=== PATIENT | male | born 1950 | race Hispanic/Latino ===

== ENCOUNTER 2017-04-19 23:36 | Inpatient (IN) | payer MEDICARE ==
--- NOTE | 2017-04-20 00:04 | C.PDOC ---
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 Patient denies chest pain, SOB, abdominal pain, ear pain, or any other complaints. History given by patient's . Time Seen by Provider: 04/20/17 00:02 Chief Complaint (Nursing): Fever History Per: Family () History/Exam Limitations: no limitations Onset/Duration Of Symptoms: Days (2) Current Symptoms Are (Timing): Still Present Sick Contacts (Context): None Ear Symptoms: Bilateral: None Severity: Mild Recent travel outside of the [place]: No Additional History Per: Family () Past Medical History Reviewed: Historical Data, Nursing Documentation, Vital Signs Vital Signs: Last Vital Signs Temp 102.3 F H 04/20/17 00:00 Pulse 88 04/19/17 23:48 Resp 20 04/19/17 23:48 BP 141/70 04/19/17 23:48 Pulse Ox 92 L 04/20/17 01:14 - Medical History Other PMH: Oconee's disease Family History: States: Unknown Family Hx - Social History Hx Alcohol Use: No Hx Substance Use: No Review Of Systems Review Of Systems: ROS cannot be obtained secondary to pt's inabilty to answer questions. Physical Exam - Physical Exam Appears: Non-toxic, No Acute Distress Skin: Warm, Dry Head: Atraumatic, Normacephalic Eye(s): bilateral: Normal Inspection Ear(s): Bilateral: Normal Oral Mucosa: Dry Throat: Normal, No Erythema, No Exudate Neck: Supple Cardiovascular: Rhythm Regular, No Murmur Respiratory: No Rales, Rhonchi (Occasional ), No Wheezing Gastrointestinal/Abdominal: Soft, No Tenderness Back: Normal Inspection, No CVA Tenderness Extremity: Capillary Refill (<2secs), Other (Rigidity of the extremities) Neurological/Psych: Other (Nonverbal) ED Course And Treatment - Laboratory Results Result Diagrams: 04/20/17 00:07 04/20/17 00:36 ECG: Interpreted By Me, Viewed By Me ECG Rhythm: Sinus Rhythm ECG Interpretation: Normal, No Acute Changes Interpretation Of ECG: NSR, normal tracings. Rate From EC O2 Sat by Pulse Oximetry: 92 (O2 mask) Pulse Ox Interpretation: Abnormal Medical Decision Making Medical Decision Making: Impression: * Fever and vomiting for 2 days. Hx of Oconee's disease. Plans: * Blood labs * CT Chest w/o * EKG * IV fluids * Tylenol * O2, simple mask * UA * director of scientific research * CXR Disposition Discussed With : Colten Prasad Doctor Will See Patient In The: Hospital Counseled Patient/Family Regarding: Diagnosis - Disposition Referrals: Blanca Hodgson MD [Primary Care Provider] - Disposition: HOSPITALIZED Disposition Time: 01:14 Condition: STABLE Forms: Clari (Albanian) - POA Present On Arrival: None - Clinical Impression Clinical Impression: Fever, Pneumonia, Oconee's disease - Scribe Statement The provider has reviewed the documentation as recorded by the Scribe Jose Manuel madrid All medical record entries made by the Scribe were at my direction and personally dictated by me. I have reviewed the chart and agree that the record accurately reflects my personal performance of the history, physical exam, medical decision making, and the department course for this patient. I have also personally directed, reviewed, and agree with the discharge instructions and disposition.
[2017-04-20 00:06] LABS: VENOUS BLOOD GAS BASE EXCESS -1.3 mmol/L (0.0-2.0); VENOUS BLOOD GAS PCO2 35 mmHg (40-60); VENOUS BLOOD PH 7.42 (7.32-7.43)
[2017-04-20 00:10] LABS: BASO # 0.1 K/uL (0.0-0.2); BASO % 0.4 % (0.0-2.0); EOS % 0.2 % (0.0-4.0); HEMATOCRIT 44.6 % (35.0-51.0); LYMPH # 0.9 K/uL (1.0-4.3); LYMPH % 5.9 % (20.0-40.0); MEAN CORPUSCULAR HEMOGLOBIN 31.9 pg (27.0-31.0); MEAN CORPUSCULAR HGB CONC 33.5 g/dL (33.0-37.0); MEAN PLATELET VOLUME 8.5 fL (7.2-11.7); MONO # 0.5 K/uL (0.0-0.8); MONO % 3.4 % (0.0-10.0); PLATELET COUNT 322 K/uL (130-400); RED CELL DISTRIBUTION WIDTH 14.1 % (11.5-14.5); WHITE BLOOD COUNT 15.2 K/uL (4.8-10.8)
[2017-04-20 00:14] LABS: INR 1.3
[2017-04-20 00:17] LABS: ALB/GLOB RATIO 1.1 (1.0-2.1); ALKALINE PHOSPHATASE 77 U/L (38-126); ALT/SGPT 42 U/L (21-72); AST/SGOT 45 U/L (17-59); BILIRUBIN,TOTAL 1.5 mg/dL (0.2-1.3); BLOOD UREA NITROGEN 16 mg/dL (9-20); CARBON DIOXIDE 20 mmol/L (22-30); CHLORIDE 102 mmol/L (98-107); GFR AFRICAN-AMERICAN > 60; GLUCOSE,RANDOM 121 mg/dL (75-110); PHOSPHOROUS 3.2 mg/dL (2.5-4.5); SODIUM 134 mmol/L (132-148); TOTAL PROTEIN 7.4 g/dL (6.3-8.3)
[2017-04-20] MEDS ORDERED: Sodium Chloride 0.9% 1,000 ML IV ONE (00:17)
[2017-04-20 00:39] LABS: POTASSIUM 5.3 mmol/L (3.6-5.2)
[2017-04-20] MEDS ORDERED: Sodium Chloride 0.9% 1,000 ML ONE (00:44)
[2017-04-20 00:52] LABS: ABG ALLEN TEST POS; ARTERIAL BLOOD GAS MODE ROOM AIR; ARTERIAL BLOOD HGB O2 SAT 93.7 % (95.0-98.0); CARBOXYHEMOGLOBIN 2.6 % (0.5-1.5); DRAW SITE RR; HHB 2.3 % (0.0-5.0); METHEMOGLOBIN 1.4 % (0.0-3.0)
--- NOTE | 2017-04-20 00:52 | CT ---
EXAM: CT Chest Without Intravenous Contrast EXAM DATE/TIME: 04/19/2017 11:56 PM CLINICAL HISTORY: 66 years old, male; Pain; Chest pain; Additional info: Fever/ cough/ carla's disease TECHNIQUE: Axial computed tomography images of the chest without intravenous contrast. All CT scans at this facility use one or more dose reduction techniques, viz.: automated exposure control; ma/kV adjustment per patient size (including targeted exams where dose is matched to indication; i.e. head); or iterative reconstruction technique. Coronal and sagittal reformatted images were created and reviewed. COMPARISON: There are no prior studies for comparison. FINDINGS: Artifacts: Motion artifact degrades image quality. Streak artifact degrades image quality. Lungs and pleural spaces: Trachea and main bronchi are patent. There are groundglass opacities in the left upper lobe. There are alveolar nodular opacities in the right upper lobe. There are alveolar and nodular opacities in the right lower lobe. There is mild diffuse increase in interstitial markings bilaterally. There is a small right effusion. Heart and vasculature: Heart size is normal.There is trace fluid in pericardial recesses. There are coronary artery calcifications.Aorta and main pulmonary artery are normal in caliber.There are vascular calcifications. Mediastinum: There is a hiatal hernia. Esophagus is unremarkable. There are no pathologically enlarged mediastinal nodes.Merissa are not optimally evaluated without contrast material. Thyroid: Thyroid is heterogeneous. Bones/joints: There is a convex right thoracolumbar curve.There are degenerative changes in the osseus structures. Soft tissues: unremarkable Upper abdomen: There are no acute abnormalities in the visualized portion of the abdomen. There is a cystic lesion with a calcified rim in the right retroperitoneum. There is a calcification in the spleen. IMPRESSION: Bilateral interstitial and airspace disease pneumonia cannot be excluded; small right pleural effusion
[2017-04-20] MEDS ORDERED: cefTRIAXone IV 1 gm in Dextros 50 ML IVPB ONE ×2 (00:59→01:08)
[2017-04-20] MEDS ORDERED: Azithromycin 500mg/250ML NS 500 MG/250 ML BAG IV STA (00:59)
[2017-04-20 01:03] LABS: NEUTROPHIL 88 % (50-75); TOTAL CELLS COUNTED 100
[2017-04-20 01:12] LABS: RBC URINE 1 /hpf (0-3); URINE BILIRUBIN NEGATIVE (NEGATIVE); URINE BLOOD NEGATIVE (NEGATIVE); URINE COLOR Yellow (YELLOW); URINE GLUCOSE (UA) NORMAL (Normal); URINE KETONE 1+ mg/dL (NEGATIVE); URINE LEUKOCYTE ESTERASE NEG Leu/uL (Negative); URINE PROTEIN NEGATIVE (NEGATIVE); URINE UROBILINOGEN NORMAL mg/dL (0.2-1.0); WBC URINE 1 /hpf (0-5)
[2017-04-20] MEDS ORDERED: Azithromycin 500mg/250ML NS 500 MG/250 ML BAG IVPB ONE (01:37)
--- NOTE | 2017-04-20 03:32 | CP.PCM.PN ---
Subjective - Date & Time of Evaluation Date of Evaluation: 04/20/17 Time of Evaluation: 03:23 - Subjective Subjective: Assessment * B/l small infiltrates, with fever, cough,suspicious for developing aspiration pna * Advanced Yunior's patient completely dependent, minimal speech, poor cognition, stiffness in the body * Very high risk of aspiration pna due to above * Right side abd calcification partially imaged Plan * Abx zosyn, doxycycline * NPO except meds with apple sauce only * IVF * Protonix iv, zofran 4mg iv q6 x4 doses schedule to prevent acid reflux with cough * Heparin subq for dvt prophylaxis * D/w about patient's condition, poor prognosis and code status, currently can't make decision hence will be full code * Speech and swallow eval * See orders for detail. Objective - Vital Signs/Intake and Output Vital Signs (last 24 hours): Temp Pulse Resp BP Pulse Ox 98.4 F 109 H 18 134/84 94 L 04/20/17 01:58 04/20/17 01:51 04/20/17 01:51 04/20/17 01:51 04/20/17 01:51 Intake and Output: 04/19/17 04/20/17 18:59 06:59 Output Total 120 Balance -120 - Medications Medications: Current Medications Acetaminophen (Tylenol 325mg Tab) 650 mg PO Q6 PRN PRN Reason: fever >101 Heparin Sodium (Porcine) (Heparin) 5,000 units SC Q8 [facility] Home Med (Baclofen) 10 mg PO DAILY [facility] Home Med (Donepezil) 10 mg PO DAILY [facility] Home Med (Seroquel) 25 mg PO DAILY [facility] Sodium Chloride (Sodium Chloride 0.9%) 1,000 mls @ 100 mls/hr IV .Q10H ONE Stop: 04/20/17 10:16 Last Admin: 04/20/17 00:45 Dose: 100 mls/hr Doxycycline Hyclate 100 mg/ (Sodium Chloride) 100 mls @ 100 mls/hr IVPB Q12H [facility] Piperacillin Sod/Tazobactam (Sod 3.375 gm/ Sodium Chloride) 100 mls @ 200 mls/ hr IVPB Q6H [facility] Ondansetron HCl (Zofran Inj) 4 mg IVP Q6H TOD Stop: 04/20/17 21:01 Pantoprazole Sodium (Protonix Inj) 40 mg IVP DAILY TOD - Labs Labs: 04/20/17 00:07 04/20/17 00:36 PT 14.3 SECONDS (9.7-12.2) H 04/20/17 00:20 INR 1.3 04/20/17 00:20 APTT 27 SECONDS (21-34) 04/20/17 00:20
[2017-04-20] MEDS: Piperacillin/Tazobact 3.375 GM in Sodium Chloride 100 ML IVPB SCH ×4 (03:45→20:54)
--- NOTE | 2017-04-20 04:02 | CP.PCM.HP ---
<Jimmy Brooks - Last Filed: 04/20/17 04:19> History of Present Illness - History of Present Illness History of Present Illness: PGY1 Medicine Note for Dr. Prasad Patient is a 66 year old male with PMH of Litchfield's disease presenting with CC of vomiting and fever. Patient is unable to give history due to advanced Litchfield's disease, is at bedside . The , who is also the primary caregiver, reports that the patient has vomited 3 times in the last two days, once on Monday and twice on Monday. The emesis is described as undigested food, with no blood or coffee ground appearance. She states that the patient also began to feel warm today and started breaking out in sweating spells. She would give him Tylenol which would help take away the subjective fever, she did not take his temperature, but it would quickly return. The states that her does speak at times but it is very periodic and is usually just repeating whatever is stated on television. He was diagnosed with Litchfield's in 2008. The patient is contracted at baseline. The last time he walked was in [id number]. He his diet consistency is shredded food. He has been able to take his medications with water without any problems. He has never has pneumonia in the past. Patient wears a diaper. He does not use the bathroom, he urinates and defecates inside the diaper. The does not report any other symptoms at this time. PMD: Dr. Hodgson PMH: Litchfield's Disease (dx in 2008) PSH: Right sided abdominal surgery in 1989 ( does not know what for) Family: Brother and Sister both of Litchfield's Disease. Does not know about pt's parents Social: Denies tobacco, alcohol or illicit drug use Allergies: NKDA Present on Admission - Present on Admission Any Indicators Present on Admission: No Review of Systems - Review of Systems Systems not reviewed;Unavailable: Other (Advanced Carla's Disease) - Constitutional Constitutional: Fever - Gastrointestinal Gastrointestinal: Vomiting (undigested food) - Endocrine Endocrine: Excessive Sweating Past Patient History - Past Social History Smoking Status: Unknown If Ever Smoked - NEUROLOGICAL Other/Comment: carla's disease - PSYCHIATRIC Hx Substance Use: No Meds Allergies/Adverse Reactions: Allergies Allergy/AdvReac Type Severity Reaction Status Date / Time No Known Allergies Allergy Verified 04/19/17 23:50 Physical Exam - Constitutional Appears: Chronically Ill (contracted) - Head Exam Head Exam: ATRAUMATIC, NORMOCEPHALIC - ENT Exam ENT Exam: Mucous Membranes Moist - Neck Exam Neck exam: Negative for: Lymphadenopathy, Thyromegaly - Respiratory Exam Respiratory Exam: Rhonchi (scattered), NORMAL BREATHING PATTERN (pt asleep, snoring throughout majority of exam). absent: Rales, Wheezes - Cardiovascular Exam Cardiovascular Exam: REGULAR RHYTHM, +S1, +S2 - GI/Abdominal Exam GI & Abdominal Exam: Normal Bowel Sounds, Soft. absent: Distended, Guarding, Rigid, Tenderness - Neurological Exam Neurological exam: Altered Additional comments: Left arm contracted to the chest. Right are flexed but able to straighten a little bit, but not completely. Legs are slightly bent, unable to straighten. Patient was able to move left during cardiac exam to move stethoscope away. This was only movement witness throughout exam. - Psychiatric Exam Additional comments: pt was non-verbal during examination. - Skin Skin Exam: Intact, Normal Color, Warm Additional comments: Patient was diaphoretic, skin moist. Results - Vital Signs Recent Vital Signs: Last Vital Signs Temp 98.4 F 04/20/17 01:58 Pulse 109 H 04/20/17 01:51 Resp 18 04/20/17 01:51 BP 134/84 04/20/17 01:51 Pulse Ox 94 L 04/20/17 01:51 - Labs Result Diagrams: 04/20/17 00:07 04/20/17 00:36 Labs: Laboratory Results - last 24 hr 04/19/17 04/20/17 04/20/17 00:01 00:07 00:20 WBC 15.2 H RBC 4.70 Hgb 15.0 Hct 44.6 MCV 95.0 H MCH 31.9 H MCHC 33.5 RDW 14.1 Plt Count 322 MPV 8.5 Neut % (Auto) 90.1 H Lymph % (Auto) 5.9 L [place] % (Auto) 3.4 Eos % (Auto) 0.2 Baso % (Auto) 0.4 Neut # 13.7 H Lymph # 0.9 L [place] # 0.5 Eos # 0.0 Baso # 0.1 Neutrophils % (Manual) 88 H Band Neutrophils % 1 Lymphocytes % (Manual) 6 L Monocytes % (Manual) 5 Platelet Estimate Normal PT 14.3 H INR 1.3 APTT 27 Puncture Site pCO2 pO2 49 HCO3 ABG pH ABG Total CO2 ABG O2 Saturation ABG Base Excess ABG Hemoglobin ABG Carboxyhemoglobin POC ABG HHb (Measured) ABG Methemoglobin Ruddy Test VBG pH 7.42 VBG pCO2 35 L VBG HCO3 23.6 VBG Total CO2 23.8 VBG O2 Sat (Calc) 96.1 H VBG Base Excess -1.3 L VBG Potassium 3.9 A-a O2 Difference Respiratory Index Hgb O2 Saturation Sodium 139.0 Chloride 107.0 Glucose 134 H Lactate 1.4 Vent Mode FiO2 Potassium Carbon Dioxide Anion Gap BUN Creatinine Est GFR ( Amer) Est GFR (Non-Af Amer) Random Glucose Calcium Phosphorus Magnesium Total Bilirubin AST ALT Alkaline Phosphatase Total Protein Albumin Globulin Albumin/Globulin Ratio Venous Blood Potassium 3.9 Urine Color Urine Clarity Urine pH Ur Specific [place] Urine Protein Urine Glucose (UA) Urine Ketones Urine Blood Urine Nitrate Urine Bilirubin Urine Urobilinogen Ur Leukocyte Esterase Urine WBC (Auto) Urine RBC (Auto) Ur Squamous Epith Cells 04/20/17 04/20/17 04/20/17 00:36 00:45 01:06 WBC RBC Hgb Hct MCV MCH MCHC RDW Plt Count MPV Neut % (Auto) Lymph % (Auto) [place] % (Auto) Eos % (Auto) Baso % (Auto) Neut # Lymph # [place] # Eos # Baso # Neutrophils % (Manual) Band Neutrophils % Lymphocytes % (Manual) Monocytes % (Manual) Platelet Estimate PT INR APTT Puncture Site Rr pCO2 36 pO2 79 L HCO3 24.8 ABG pH 7.43 ABG Total CO2 25.0 ABG O2 Saturation 97.6 ABG Base Excess 0 ABG Hemoglobin 14.8 ABG Carboxyhemoglobin 2.6 H POC ABG HHb (Measured) 2.3 ABG Methemoglobin 1.4 Ruddy Test Pos VBG pH VBG pCO2 VBG HCO3 VBG Total CO2 VBG O2 Sat (Calc) VBG Base Excess VBG Potassium A-a O2 Difference 26.0 Respiratory Index 0.3 Hgb O2 Saturation 93.7 L Sodium 134 Chloride 102 Glucose Lactate Vent Mode Room air FiO2 21.0 Potassium 5.3 H Carbon Dioxide 20 L Anion Gap 17 BUN 16 Creatinine 0.7 L Est GFR ( Amer) > 60 Est GFR (Non-Af Amer) > 60 Random Glucose 121 H Calcium 9.0 Phosphorus 3.2 Magnesium 2.0 Total Bilirubin 1.5 H AST 45 ALT 42 Alkaline Phosphatase 77 Total Protein 7.4 Albumin 3.9 Globulin 3.5 Albumin/Globulin Ratio 1.1 Venous Blood Potassium Urine Color Yellow Urine Clarity Clear Urine pH 5.0 Ur Specific [place] 1.033 H Urine Protein Negative Urine Glucose (UA) Normal Urine Ketones 1+ H Urine Blood Negative Urine Nitrate Negative Urine Bilirubin Negative Urine Urobilinogen Normal Ur Leukocyte Esterase Neg Urine WBC (Auto) 1 Urine RBC (Auto) 1 Ur Squamous Epith Cells < 1 Assessment & Plan - Assessment and Plan (Free Text) Assessment: Pneumonia - Chest CT 04/20/17 - Bilateral interstitial and airspace disease pneumonia cannot be excluded; small right pleural effusion. There is a non-acute, cystic appearing lesion with a calcified rim partially imaged in the the upper portion of the abdomen. Further imagining may be needed to further evaluate.St - Pt high risk for aspiration pneumonia due to advanced Litchfield's disease. - Pt given one dose of Azithromycin 500mg and Ceftriazone 50mg in emergency room - Zosyn 3.375g IVPB Q6H - Doxycycline 100mg IVPB Q12H - Protonix 40mg IV daily - Zosyn 4 mg IVP Q6H for 4 doses - Acetaminophen Q6 PRN for fever >101 - NS @ 100ml/hr - f/u blood cultures, urine cultures Litchfield's Disease - Patient high risk of aspiration, swallow study and evaluation - Restarted patient's home medications - Baclofen 10mg PO daily - Donepezil 10mg PO daily - Seroquel 25mg PO HS Prophylactic Care - Heparin 5,000u SC Q8H - Protonix 40mg IVP daily - NPO except apple sauce with medications (all medications are to be crushed and placed in apple sauce and fed to patient one spoonful at a time) - Aspiration precautions Case discussed with Dr. Shanice Brooks PGY1 <Colten Prasad - Last Filed: 04/23/17 07:25> Results - Vital Signs Recent Vital Signs: Last Vital Signs Temp 97.5 F L 04/23/17 05:00 Pulse 93 H 09/24/17 00:00 Resp 18 04/23/17 00:00 BP 155/83 H 04/23/17 00:00 Pulse Ox 99 04/23/17 00:00 - Labs Result Diagrams: 04/22/17 06:50 04/22/17 06:50 Attending/Attestation - Attestation I have personally seen and examined this patient.: Yes I have fully participated in the care of the patient.: Yes I have reviewed all pertinent clinical information: Yes Notes (Text): 04/23/17 07:25 See note on the same day.
[2017-04-20 07:14] LABS: BASO # 0.1 K/uL (0.0-0.2); BASO % 0.5 % (0.0-2.0); EOS % 0.1 % (0.0-4.0); HEMATOCRIT 39.4 % (35.0-51.0); LYMPH % 6.2 % (20.0-40.0); MEAN CELL VOLUME 95.3 fL (80.0-94.0); MEAN CORPUSCULAR HEMOGLOBIN 32.3 pg (27.0-31.0); MEAN CORPUSCULAR HGB CONC 33.9 g/dL (33.0-37.0); MEAN PLATELET VOLUME 8.5 fL (7.2-11.7); MONO # 0.9 K/uL (0.0-0.8); MONO % 5.7 % (0.0-10.0); PLATELET COUNT 267 K/uL (130-400); WHITE BLOOD COUNT 15.7 K/uL (4.8-10.8)
[2017-04-20 07:45] LABS: CHLORIDE 107 mmol/L (98-107); POTASSIUM 3.9 mmol/L (3.6-5.2); SODIUM 142 mmol/L (132-148)
[2017-04-20 07:47] LABS: BILIRUBIN,TOTAL 0.9 mg/dL (0.2-1.3); GFR AFRICAN-AMERICAN > 60
[2017-04-20 07:48] LABS: ALB/GLOB RATIO 1.1 (1.0-2.1); ALKALINE PHOSPHATASE 80 U/L (38-126); ALT/SGPT 41 U/L (21-72); AST/SGOT 19 U/L (17-59); BLOOD UREA NITROGEN 14 mg/dL (9-20); CARBON DIOXIDE 21 mmol/L (22-30); GLUCOSE,RANDOM 103 mg/dL (75-110); TOTAL PROTEIN 6.5 g/dL (6.3-8.3)
[2017-04-20 07:49] LABS: CALCIUM 8.1 mg/dl (8.6-10.4)
[2017-04-20] MEDS: Budesonide 0.5 mg/2 ml Inhal Susp UD INH SCH ×2 (08:06→19:14)
[2017-04-20] MEDS: Albuterol 0.083% Inhal Sol (2.5 mg/3 mL) UD INH SCH ×3 (08:06→19:14)
--- NOTE | 2017-04-20 08:11 | RAD ---
HISTORY: Sepsis Patient COMPARISON: No prior. FINDINGS: LUNGS: No active pulmonary disease. PLEURA: No significant pleural effusion identified, no pneumothorax apparent. CARDIOVASCULAR: Probable top-normal - given apical projection OSSEOUS STRUCTURES: Dextroscoliosis and thoracic spondylosis VISUALIZED UPPER ABDOMEN: Normal. OTHER FINDINGS: None. IMPRESSION: No active disease.
[2017-04-20 08:21] LABS: THYROID STIMULATING HORMONE 1.48 mIU/L (0.46-4.68)
[2017-04-20 08:31] LABS: NEUTROPHIL 89 % (50-75); TOTAL CELLS COUNTED 100
--- NOTE | 2017-04-20 08:48 | CP.PCM.PN ---
<Eula Servin - Last Filed: 04/20/17 15:20> Subjective - Date & Time of Evaluation Date of Evaluation: 04/20/17 Time of Evaluation: 07:40 - Subjective Subjective: Medicine Progress Note: Patient was seen and examined at bedside in the AM. ROS unattainable due to progression of Bedford's Disease, patient is non-verbal. Objective - Vital Signs/Intake and Output Vital Signs (last 24 hours): Temp Pulse Resp BP Pulse Ox 97.4 F L 80 18 155/99 H 95 04/20/17 07:15 04/20/17 07:15 04/20/17 07:15 04/20/17 07:15 04/20/17 07:15 Intake and Output: 04/20/17 04/20/17 06:59 18:59 Intake Total 250 Output Total 320 Balance -70 - Medications Medications: Current Medications Acetaminophen (Tylenol 325mg Tab) 650 mg PO Q6 PRN PRN Reason: fever >101 Albuterol Sulfate (Albuterol 0.083% Inhal Dunia (2.5 Mg/3 Ml) Ud) 2.5 mg INH RQ6 [facility] Last Admin: 04/20/17 08:06 Dose: 2.5 mg Aspirin (Aspirin Chewable) 81 mg PO DAILY [facility] Baclofen (Lioresal) 10 mg PO DAILY [facility] Budesonide (Pulmicort Respules) 0.5 mg INH RQ12 [facility] Last Admin: 04/20/17 08:06 Dose: Not Given Donepezil HCl (Aricept) 10 mg PO DAILY [facility] Heparin Sodium (Porcine) (Heparin) 5,000 units SC Q8 [facility] Last Admin: 04/20/17 06:59 Dose: 5,000 units Sodium Chloride (Sodium Chloride 0.9%) 1,000 mls @ 100 mls/hr IV .Q10H ONE Stop: 04/20/17 10:16 Last Admin: 04/20/17 00:45 Dose: 100 mls/hr Doxycycline Hyclate 100 mg/ (Sodium Chloride) 100 mls @ 100 mls/hr IVPB Q12H [facility] Last Admin: 04/20/17 05:04 Dose: 100 mls/hr Piperacillin Sod/Tazobactam (Sod 3.375 gm/ Sodium Chloride) 100 mls @ 200 mls/ hr IVPB Q6H [facility] Last Admin: 04/20/17 03:45 Dose: 200 mls/hr Ondansetron HCl (Zofran Inj) 4 mg IVP Q6H [facility] Stop: 04/20/17 21:01 Last Admin: 04/20/17 03:46 Dose: 4 mg Pantoprazole Sodium (Protonix Inj) 40 mg IVP DAILY [facility] Pneumococcal Polyvalent Vaccine (Pneumovax 23 Vaccine) 0.5 ml IM .ONCE ONE Stop: 04/22/17 10:01 Quetiapine Fumarate (Seroquel) 25 mg PO DAILY [facility] - Labs Labs: 04/20/17 07:09 04/20/17 07:09 PT 14.3 SECONDS (9.7-12.2) H 04/20/17 00:20 INR 1.3 04/20/17 00:20 APTT 27 SECONDS (21-34) 04/20/17 00:20 - Constitutional Appears: Chronically Ill - Head Exam Head Exam: ATRAUMATIC, NORMAL INSPECTION, NORMOCEPHALIC - Eye Exam Eye Exam: Normal appearance - ENT Exam ENT Exam: Mucous Membranes Moist - Respiratory Exam Respiratory Exam: NORMAL BREATHING PATTERN - Cardiovascular Exam Cardiovascular Exam: REGULAR RHYTHM, +S1, +S2 - GI/Abdominal Exam GI & Abdominal Exam: Soft, Normal Bowel Sounds - Extremities Exam Extremities Exam: absent: Joint Swelling, Pedal Edema Additional comments: Contracted bilateral upper and lower extremities - Neurological Exam Neurological Exam: Alert, Awake. absent: Oriented x3 Additional comments: Contracted bilateral upper and lower extremities. Was able to extend upper extremities a little bit but patient seemed not to appreciate. - Psychiatric Exam Additional comments: Non-verbal - Skin Skin Exam: Normal Color, Warm Assessment and Plan - Assessment and Plan (Free Text) Assessment: 1.) Aspiration Pneumonia secondary to advanced Bedford's Disease - Chest CT 04/20/17 - Bilateral interstitial and airspace disease pneumonia cannot be excluded; small right pleural effusion. There is a non-acute, cystic appearing lesion with a calcified rim partially imaged in the the upper portion of the abdomen. Further imagining may be needed to further evaluate.St * Zosyn 3.375g IVPB Q6H * Doxycycline 100mg IVPB Q12H discontinued Acetaminophen Q6 PRN for fever >101 * NS @ 100ml/hr - f/u blood cultures, urine cultures 2.) Yunior's Disease - Patient high risk of aspiration, swallow study and evaluation - NPO - Possible placement of NG tube - Will speak with to discuss plan - Restarted patient's home medications * Baclofen 10mg PO daily * Donepezil 10mg PO daily * Seroquel 25mg PO HS - Neurology Consult: Dr. Golden --> help appreciated - f/u MRI of brain 3.) Prophylactic Care * Heparin 5,000u SC Q8H * Protonix 40mg IVP daily - NPO except apple sauce with medications (all medications are to be crushed and placed in apple sauce and fed to patient one spoonful at a time) - Aspiration precautions Case Discussed with Dr. Lisa Servin PGY-1 <Heber Gonzalez H - Last Filed: 04/20/17 16:28> Objective - Vital Signs/Intake and Output Vital Signs (last 24 hours): Temp Pulse Resp BP Pulse Ox 99.4 F 73 20 157/96 H 95 04/20/17 15:45 04/20/17 15:45 04/20/17 15:45 04/20/17 15:45 04/20/17 15:45 Intake and Output: 04/20/17 04/20/17 06:59 18:59 Intake Total 250 Output Total 320 Balance -70 - Medications Medications: Current Medications Acetaminophen (Tylenol 325mg Tab) 650 mg PO Q6 PRN PRN Reason: fever >101 Albuterol Sulfate (Albuterol 0.083% Inhal Dunia (2.5 Mg/3 Ml) Ud) 2.5 mg INH RQ6 [facility] Last Admin: 04/20/17 13:18 Dose: 2.5 mg Aspirin (Aspirin Chewable) 81 mg PO DAILY [facility] Last Admin: 04/20/17 13:47 Dose: 81 mg Baclofen (Lioresal) 10 mg PO DAILY [facility] Last Admin: 04/20/17 11:11 Dose: 10 mg Budesonide (Pulmicort Respules) 0.5 mg INH RQ12 [facility] Last Admin: 04/20/17 08:06 Dose: Not Given Donepezil HCl (Aricept) 10 mg PO DAILY [facility] Last Admin: 04/20/17 13:46 Dose: 10 mg Heparin Sodium (Porcine) (Heparin) 5,000 units SC Q8 [facility] Last Admin: 04/20/17 14:33 Dose: 5,000 units Piperacillin Sod/Tazobactam (Sod 3.375 gm/ Sodium Chloride) 100 mls @ 200 mls/ hr IVPB Q6H [facility] Last Admin: 04/20/17 14:07 Dose: 200 mls/hr Ondansetron HCl (Zofran Inj) 4 mg IVP Q6H [facility] Stop: 04/20/17 21:01 Last Admin: 04/20/17 14:42 Dose: 4 mg Pantoprazole Sodium (Protonix Inj) 40 mg IVP DAILY [facility] Last Admin: 04/20/17 09:51 Dose: 40 mg Pneumococcal Polyvalent Vaccine (Pneumovax 23 Vaccine) 0.5 ml IM .ONCE ONE Stop: 04/22/17 10:01 Quetiapine Fumarate (Seroquel) 25 mg PO DAILY [facility] Last Admin: 04/20/17 13:46 Dose: 25 mg - Labs Labs: 04/20/17 07:09 04/20/17 07:09 PT 14.3 SECONDS (9.7-12.2) H 04/20/17 00:20 INR 1.3 04/20/17 00:20 APTT 27 SECONDS (21-34) 04/20/17 00:20 Attending/Attestation - Attestation I have personally seen and examined this patient.: Yes I have fully participated in the care of the patient.: Yes I have reviewed all pertinent clinical information, including history, physical exam and plan: Yes Notes (Text): Medical attending: Patient was seen and examined by me, agrees the above note by medical device sales representative. When we came and saw the patient, he was not following any commands, he would only occasionally open his eyes. He did move his left and right upper arms however he has very contracted arms. They are very rigid on exam as well. The patient on told was diagnosed with Bedford's disease for quite some time now. There is also a family history of the patient's brother and sister supposedly passing away due to complications of the disease as well The overnight medical team was concerned about CAT scan findings suggestive of aspiration pneumonia. I'm being told that at home the family member taking care of the patient tries to feed him by mouth. From what I saw today I per concerned about aspiration pneumonia. I also spoke with the swallow eval as well and there to come by to reevaluate again. However thiseing said, we are very likely were to put an NG tube tomorrow if there is no change in the mental status/swallowing status and then recommended to the family that we need to get a PEG tube. The patient is on IV antibiotics at this time were to continue that We'll also get a neurological evaluation of the patient as well since there is a possibility that perhaps this is a presentation of severe Parkinson's disease instead of Bedford's and that the patient would be able to benefit from medication such as carbidopa/levodopa or pramipexole if this is Parkinson's disease Thank you very much, Heber Gonzalez
[2017-04-21] MEDS: Piperacillin/Tazobact 3.375 GM in Sodium Chloride 100 ML IVPB SCH ×4 (03:08→20:53)
[2017-04-21] MEDS: Albuterol 0.083% Inhal Sol (2.5 mg/3 mL) UD INH SCH ×4 (06:25→19:26)
--- NOTE | 2017-04-21 06:54 | CP.PCM.CON ---
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 NO FURTHER WORK UP IS NEEDED NEWLY APPROVED DRUG CAN BE TRIED AN OP Past Patient History - Past Medical History & Family History Past Medical History?: Yes - Past Social History Smoking Status: Never Smoked - CARDIAC Hx Cardiac Disorders: No - PULMONARY Hx Respiratory Disorders: No - NEUROLOGICAL Other/Comment: carla's disease - HEENT Hx HEENT Problems: No - RENAL Hx Chronic Kidney Disease: No - ENDOCRINE/METABOLIC Hx Endocrine Disorders: No - HEMATOLOGICAL/ONCOLOGICAL Hx Blood Disorders: No - INTEGUMENTARY Hx Dermatological Problems: No - MUSCULOSKELETAL/RHEUMATOLOGICAL Hx Musculoskeletal Disorders: No Hx Falls: No - GASTROINTESTINAL Hx Colostomy: Yes (2007) - GENITOURINARY/GYNECOLOGICAL Hx Incontinence: Yes - PSYCHIATRIC Hx Substance Use: No - SURGICAL HISTORY Other/Comment: Rt. Abd. Surgery By Dr. Crowe in 1997 - ANESTHESIA Hx Anesthesia: Yes Hx Anesthesia Reactions: No Hx Malignant Hyperthermia: No Meds Allergies/Adverse Reactions: Allergies Allergy/AdvReac Type Severity Reaction Status Date / Time No Known Allergies Allergy Verified 04/19/17 23:50 - Medications Medications: Current Medications Acetaminophen (Tylenol 650 Mg Supp) 650 mg CA Q6 PRN PRN Reason: Fever >100.4 F Last Admin: 04/20/17 20:55 Dose: 650 mg Albuterol Sulfate (Albuterol 0.083% Inhal Dunia (2.5 Mg/3 Ml) Ud) 2.5 mg INH RQ6 [facility] Last Admin: 04/21/17 06:25 Dose: Not Given Aspirin (Aspirin Chewable) 81 mg PO DAILY [facility] Last Admin: 04/20/17 13:47 Dose: 81 mg Baclofen (Lioresal) 10 mg PO DAILY [facility] Last Admin: 04/20/17 11:11 Dose: 10 mg Budesonide (Pulmicort Respules) 0.5 mg INH RQ12 [facility] Last Admin: 04/20/17 19:14 Dose: 0.5 mg Donepezil HCl (Aricept) 10 mg PO DAILY [facility] Last Admin: 04/20/17 13:46 Dose: 10 mg Heparin Sodium (Porcine) (Heparin) 5,000 units SC Q8 [facility] Last Admin: 04/21/17 05:05 Dose: 5,000 units Piperacillin Sod/Tazobactam (Sod 3.375 gm/ Sodium Chloride) 100 mls @ 200 mls/ hr IVPB Q6H [facility] Last Admin: 04/21/17 03:08 Dose: 200 mls/hr Pantoprazole Sodium (Protonix Inj) 40 mg IVP DAILY [facility] Last Admin: 04/20/17 09:51 Dose: 40 mg Pneumococcal Polyvalent Vaccine (Pneumovax 23 Vaccine) 0.5 ml IM .ONCE ONE Stop: 04/22/17 10:01 Quetiapine Fumarate (Seroquel) 25 mg PO DAILY [facility] Last Admin: 04/20/17 13:46 Dose: 25 mg Results - Vital Signs Recent Vital Signs: Last Vital Signs Temp 99.3 F 04/20/17 23:50 Pulse 81 04/21/17 00:00 Resp 20 04/20/17 23:50 BP 135/60 04/20/17 23:50 Pulse Ox 96 04/20/17 23:50 - Labs Result Diagrams: 04/20/17 07:09 04/20/17 07:09 Labs: Laboratory Results - last 24 hr 04/20/17 04/20/17 07:09 07:09 WBC 15.7 H RBC 4.14 L Hgb 13.4 Hct 39.4 MCV 95.3 H MCH 32.3 H MCHC 33.9 RDW 14.0 Plt Count 267 MPV 8.5 Neut % (Auto) 87.5 H Lymph % (Auto) 6.2 L Miner % (Auto) 5.7 Eos % (Auto) 0.1 Baso % (Auto) 0.5 Neut # 13.8 H Lymph # 1.0 Miner # 0.9 H Eos # 0.0 Baso # 0.1 Neutrophils % (Manual) 89 H Lymphocytes % (Manual) 6 L Monocytes % (Manual) 5 Platelet Estimate Normal RBC Morphology Normal Sodium 142 Potassium 3.9 Chloride 107 Carbon Dioxide 21 L Anion Gap 18 BUN 14 Creatinine 0.7 L Est GFR ( Amer) > 60 Est GFR (Non-Af Amer) > 60 Random Glucose 103 Calcium 8.1 L Total Bilirubin 0.9 AST 19 ALT 41 Alkaline Phosphatase 80 Total Protein 6.5 Albumin 3.3 L Globulin 3.1 Albumin/Globulin Ratio 1.1 Vitamin B12 932 H TSH 3rd Generation 1.48
[2017-04-21] MEDS: Budesonide 0.5 mg/2 ml Inhal Susp UD INH SCH ×2 (07:29→19:26)
[2017-04-21 08:10] LABS: BASO # 0.1 K/uL (0.0-0.2); BASO % 0.6 % (0.0-2.0); EOS % 0.2 % (0.0-4.0); HEMATOCRIT 38.9 % (35.0-51.0); LYMPH # 1.4 K/uL (1.0-4.3); LYMPH % 10.1 % (20.0-40.0); MEAN CELL VOLUME 95.5 fL (80.0-94.0); MEAN CORPUSCULAR HEMOGLOBIN 32.5 pg (27.0-31.0); MONO # 0.9 K/uL (0.0-0.8); MONO % 6.6 % (0.0-10.0); RED CELL DISTRIBUTION WIDTH 14.1 % (11.5-14.5); WHITE BLOOD COUNT 13.7 K/uL (4.8-10.8)
[2017-04-21 08:38] LABS: CHLORIDE 105 mmol/L (98-107); POTASSIUM 3.6 mmol/L (3.6-5.2); SODIUM 139 mmol/L (132-148)
[2017-04-21 08:40] LABS: AST/SGOT 19 U/L (17-59); BILIRUBIN,TOTAL 1.1 mg/dL (0.2-1.3); CARBON DIOXIDE 22 mmol/L (22-30); GFR AFRICAN-AMERICAN > 60
[2017-04-21 08:41] LABS: ALB/GLOB RATIO 1.1 (1.0-2.1); ALKALINE PHOSPHATASE 78 U/L (38-126); ALT/SGPT 41 U/L (21-72); BLOOD UREA NITROGEN 10 mg/dL (9-20); CALCIUM 8.4 mg/dl (8.6-10.4); GLUCOSE,RANDOM 84 mg/dL (75-110); PHOSPHOROUS 2.3 mg/dL (2.5-4.5); TOTAL PROTEIN 6.7 g/dL (6.3-8.3)
[2017-04-21 08:42] LABS: MAGNESIUM 1.8 mg/dL (1.6-2.3)
--- NOTE | 2017-04-21 09:20 | CP.PCM.PN ---
<Eula Servin - Last Filed: 04/21/17 15:38> Subjective - Date & Time of Evaluation Date of Evaluation: 04/21/17 Time of Evaluation: 07:00 - Subjective Subjective: Medicine Progress Note: Patient was seen and examined at bedside in the AM. 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 Patient's at bedside stated she was feeding the patient at home. She states the last time he was able to swallow his food was on Monday. She states she would like to continue to try feeding him. She does not want him to have a PEG tube. Objective - Vital Signs/Intake and Output Vital Signs (last 24 hours): Temp Pulse Resp BP Pulse Ox 98.4 F 108 H 20 172/73 H 98 04/21/17 08:30 04/21/17 08:30 04/21/17 08:30 04/21/17 08:30 04/21/17 08:30 Intake and Output: 04/21/17 04/21/17 06:59 18:59 Intake Total 100 Output Total 850 Balance -750 - Medications Medications: Current Medications Acetaminophen (Tylenol 650 Mg Supp) 650 mg [place] Q6 PRN PRN Reason: Fever >100.4 F Last Admin: 04/20/17 20:55 Dose: 650 mg Albuterol Sulfate (Albuterol 0.083% Inhal Dunia (2.5 Mg/3 Ml) Ud) 2.5 mg INH RQ6 [facility] Last Admin: 04/21/17 07:29 Dose: 2.5 mg Aspirin (Aspirin Chewable) 81 mg PO DAILY [facility] Last Admin: 04/20/17 13:47 Dose: 81 mg Baclofen (Lioresal) 10 mg PO DAILY [facility] Last Admin: 04/20/17 11:11 Dose: 10 mg Budesonide (Pulmicort Respules) 0.5 mg INH RQ12 [facility] Last Admin: 04/21/17 07:29 Dose: 0.5 mg Donepezil HCl (Aricept) 10 mg PO DAILY [facility] Last Admin: 04/20/17 13:46 Dose: 10 mg Heparin Sodium (Porcine) (Heparin) 5,000 units SC Q8 [facility] Last Admin: 04/21/17 05:05 Dose: 5,000 units Piperacillin Sod/Tazobactam (Sod 3.375 gm/ Sodium Chloride) 100 mls @ 200 mls/ hr IVPB Q6H [facility] Last Admin: 04/21/17 08:52 Dose: 200 mls/hr Pantoprazole Sodium (Protonix Inj) 40 mg IVP DAILY [facility] Last Admin: 04/20/17 09:51 Dose: 40 mg Pneumococcal Polyvalent Vaccine (Pneumovax 23 Vaccine) 0.5 ml IM .ONCE ONE Stop: 04/22/17 10:01 Quetiapine Fumarate (Seroquel) 25 mg PO DAILY [facility] Last Admin: 04/20/17 13:46 Dose: 25 mg - Labs Labs: 04/21/17 08:00 04/21/17 08:00 PT 14.3 SECONDS (9.7-12.2) H 04/20/17 00:20 INR 1.3 04/20/17 00:20 APTT 40 SECONDS (21-34) H D 04/21/17 08:00 - Constitutional Appears: Chronically Ill - Head Exam Head Exam: ATRAUMATIC, NORMAL INSPECTION, NORMOCEPHALIC - Eye Exam Eye Exam: EOMI, Normal appearance, PERRL Pupil Exam: NORMAL ACCOMODATION - ENT Exam ENT Exam: Mucous Membranes Dry - Respiratory Exam Respiratory Exam: NORMAL BREATHING PATTERN - Cardiovascular Exam Cardiovascular Exam: REGULAR RHYTHM, RRR, +S1, +S2 - GI/Abdominal Exam GI & Abdominal Exam: Soft, Normal Bowel Sounds - Extremities Exam Extremities Exam: absent: Joint Swelling, Normal Inspection, Pedal Edema Additional comments: Left upper extremity was contracted. Right upper extremity was extended. Bilateral lower extremities were both contracted. - Neurological Exam Neurological Exam: Alert. absent: Awake, Oriented x3 Additional comments: Does not respond to commands. 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 There is a non-acute, cystic appearing lesion with a calcified rim partially imaged in the the upper portion of the abdomen. Further imagining may be needed to further evaluate.St * Zosyn 3.375g IVPB Q6H started 04/20 * Azythromycin 500mg IV started 04/21 * Acetaminophen Q6 PRN for fever >101 * 1/2 normal NS @ 70ml/hr - f/u blood culture - urine cultures: No growth 2.) Platte's Disease - Patient high risk of aspiration, swallow study and evaluation - Pureed diet with liquids - honey thickened - Spoke with she states she would like to try to feed her . She states she does not want him to get a PEG tube. - Restarted patient's home medications * Baclofen 10mg PO daily * Donepezil 10mg PO daily * Seroquel 25mg PO HS - Neurology Consult: Dr. Golden --> help appreciated - f/u MRI of brain 3.) Prophylactic Care * Heparin 5,000u SC Q8H * Protonix 40mg IVP daily - Aspiration precautions Case Discussed with Dr. Lisa Servin PGY-1 <Heber Gonzalez H - Last Filed: 04/21/17 17:24> Objective - Vital Signs/Intake and Output Vital Signs (last 24 hours): Temp Pulse Resp BP Pulse Ox 98.1 F 110 H 18 112/71 95 04/21/17 15:00 04/21/17 15:00 04/21/17 15:00 04/21/17 15:00 04/21/17 15:00 Intake and Output: 04/21/17 04/21/17 06:59 18:59 Intake Total 100 Output Total 850 Balance -750 - Medications Medications: Current Medications Acetaminophen (Tylenol 650 Mg Supp) 650 mg TN Q6 PRN PRN Reason: Fever >100.4 F Last Admin: 04/20/17 20:55 Dose: 650 mg Albuterol Sulfate (Albuterol 0.083% Inhal Dunia (2.5 Mg/3 Ml) Ud) 2.5 mg INH RQ6 [facility] Last Admin: 04/21/17 13:16 Dose: 2.5 mg Aspirin (Aspirin Chewable) 81 mg PO DAILY [facility] Last Admin: 04/21/17 09:24 Dose: 81 mg Baclofen (Lioresal) 10 mg PO DAILY [facility] Last Admin: 04/21/17 09:24 Dose: 10 mg Budesonide (Pulmicort Respules) 0.5 mg INH RQ12 [facility] Last Admin: 04/21/17 07:29 Dose: 0.5 mg Donepezil HCl (Aricept) 10 mg PO DAILY [facility] Last Admin: 04/21/17 09:24 Dose: 10 mg Heparin Sodium (Porcine) (Heparin) 5,000 units SC Q8 [facility] Last Admin: 04/21/17 13:02 Dose: 5,000 units Piperacillin Sod/Tazobactam (Sod 3.375 gm/ Sodium Chloride) 100 mls @ 200 mls/ hr IVPB Q6H [facility] Last Admin: 04/21/17 14:00 Dose: 200 mls/hr Sodium Chloride (Sodium Chloride 0.45%) 1,000 mls @ 70 mls/hr IV .[id number] [facility] Last Admin: 04/21/17 13:31 Dose: 70 mls/hr Azithromycin 500 mg/ Sodium (Chloride) 250 mls @ 166.667 mls/hr IVPB Q24H [facility] Last Admin: 04/21/17 15:00 Dose: 166.667 mls/hr Pantoprazole Sodium (Protonix Inj) 40 mg IVP DAILY [facility] Last Admin: 04/21/17 10:22 Dose: 40 mg Pneumococcal Polyvalent Vaccine (Pneumovax 23 Vaccine) 0.5 ml IM .ONCE ONE Stop: 04/22/17 10:01 Quetiapine Fumarate (Seroquel) 25 mg PO DAILY [facility] Last Admin: 04/21/17 09:24 Dose: 25 mg - Labs Labs: 04/21/17 08:00 04/21/17 08:00 PT 14.3 SECONDS (9.7-12.2) H 04/20/17 00:20 INR 1.3 04/20/17 00:20 APTT 40 SECONDS (21-34) H D 04/21/17 08:00 Attending/Attestation - Attestation I have personally seen and examined this patient.: Yes I have fully participated in the care of the patient.: Yes I have reviewed all pertinent clinical information, including history, physical exam and plan: Yes Notes (Text): 04/21/17 17:21 Medical Attending: Patient was seen and examined by me. Agree with the above note by the resident. The patient's family was present at bedside. We had a discussion with karens to potential PEG tube and explained that without this he is at future risk for potential aspiration pneumonia. Family members stated that she does not want a PEG for him. She wants to try to feed him on her own. So at this time will continue with IV abx. Follow cultures and vital signs thank you Heber Gonzalez
--- NOTE | 2017-04-21 09:31 | CON ---
DATE: 04/21/2017 ATTENDING PHYSICIAN: Dr. Stein. LOCATION: The patient is in room #659, bed A. REASON FOR CONSULTATION: Abnormal movements. CHIEF COMPLAINT: The patient was brought into [facility] with history of abdominal pain and poor intake. The patient is carrying the diagnosis of Yunior's disease. From a neurological point, I was called in to evaluate him for the same. HISTORY OF PRESENTING ILLNESS: The patient is a 66-year-old right-handed male who has been diagnosed with Yunior disease in 2008, in [facility], strong family for his father, his sister, and his brother with the same in the past; been on medication, been followed by local neurologist. The patient is bedridden since 2013, totally dependent. No history of suicidal ideation. No history of any psychiatric features associated with Alpine's disease. PAST MEDICAL HISTORY: Alpine's disease. The patient is bedridden. PERSONAL HISTORY: Denies smoking or alcohol use. REVIEW OF SYSTEMS: A 12-point system has been reviewed. From neuro, abnormal movements. MEDICATIONS: Albuterol, donepezil, aspirin, heparin, baclofen, piperacillin, pantoprazole, Pulmicort, quetiapine, acetaminophen, and citalopram. PHYSICAL EXAMINATION: VITAL SIGNS: Blood pressure 135/60, mean arterial pressure of 85, respiratory rate 16, temperature afebrile. NECK: Supple. Voluntary guarding noted. HEART: Sounds regular. EXTREMITIES: Legs have increased tone to compare with upper extremities. NEUROLOGICAL EXAMINATION: The patient is examined in the presence of his . The patient is sleeping, not arousable, responds to pain, appropriate response noted with grimacing. On forcibly opening the eyelid, rolling conjugate gaze noted. Some rhythmic movement of blepharospasm and pursing of the mouth noted. No chorea noted in the upper extremities. Motor examination: Tone increased in legs more than his arms. The patient kept mittens in the left hand. Throughout, deep tendon reflexes are absent, plantars are mute. The sensory examination could not be able to be evaluated except response to pain. Coordination and gait: Deferred at this time. LABORATORY DATA: WBC 15.7, hemoglobin 13.4, hematocrit 39.4, platelets 267. PT 14.3, INR 1.3, PTT 27. Sodium 142, potassium 3.9, chloride 107, bicarbonate 21, BUN 14, creatinine 0.7, GFR more than 60, glucose 103, calcium 8.1, and B12 of 932. 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 The patient is already on atypical neuroleptics and SSRI. RECOMMENDATION: Continue the same medications. Recently, a drug has been approved for Yunior's disease which can be started following discharge from the hospital. Instructions have been given to the patient's . No further workup is needed from neurological point of view. DVT prophylaxis, appropriate antibiotics for his infectious source. Correct the electrolytes. The patient's condition has been discussed with his . The patient will be followed as outpatient. Andrew Golden MD
[2017-04-21] MEDS ORDERED: Sodium Chloride 0.45% 1,000 ML IV SCH (13:15)
[2017-04-21] MEDS: Azithromycin 500 MG in Sodium Chloride 0.9% 250 ML IVPB SCH (15:00)
[2017-04-22] MEDS: Piperacillin/Tazobact 3.375 GM in Sodium Chloride 100 ML IVPB SCH ×4 (02:15→20:59)
[2017-04-22 07:02] LABS: BASO # 0.1 K/uL (0.0-0.2); BASO % 0.5 % (0.0-2.0); EOS # 0.3 K/uL (0.0-0.7); EOS % 2.2 % (0.0-4.0); HEMATOCRIT 38.5 % (35.0-51.0); LYMPH # 1.7 K/uL (1.0-4.3); MEAN CELL VOLUME 94.9 fL (80.0-94.0); MEAN CORPUSCULAR HEMOGLOBIN 32.2 pg (27.0-31.0); MEAN PLATELET VOLUME 8.4 fL (7.2-11.7); MONO % 7.2 % (0.0-10.0); RED CELL DISTRIBUTION WIDTH 14.1 % (11.5-14.5); WHITE BLOOD COUNT 14.3 K/uL (4.8-10.8)
[2017-04-22 07:13] LABS: ALB/GLOB RATIO 1.2 (1.0-2.1); ALKALINE PHOSPHATASE 67 U/L (38-126); ALT/SGPT 40 U/L (21-72); AST/SGOT 35 U/L (17-59); BLOOD UREA NITROGEN 9 mg/dL (9-20); CALCIUM 8.7 mg/dl (8.6-10.4); CARBON DIOXIDE 26 mmol/L (22-30); CHLORIDE 100 mmol/L (98-107); GFR AFRICAN-AMERICAN > 60; GLUCOSE,RANDOM 85 mg/dL (75-110); MAGNESIUM 1.7 mg/dL (1.6-2.3); PHOSPHOROUS 2.5 mg/dL (2.5-4.5); POTASSIUM 3.8 mmol/L (3.6-5.2); SODIUM 136 mmol/L (132-148); TOTAL PROTEIN 6.1 g/dL (6.3-8.3)
[2017-04-22] MEDS: Budesonide 0.5 mg/2 ml Inhal Susp UD INH SCH ×2 (07:49→19:55)
[2017-04-22] MEDS: Albuterol 0.083% Inhal Sol (2.5 mg/3 mL) UD INH SCH ×3 (07:49→19:55)
--- NOTE | 2017-04-22 09:35 | CP.PCM.PN ---
Subjective - Date & Time of Evaluation Date of Evaluation: 04/22/17 Time of Evaluation: 09:00 - Subjective Subjective: Patient's at bedside today. The patient was able to open his eyes and I watched her give him the purreed food by spoon. He was able to take the food down To be nelson I was surprised he was able to do this - nevertheless I reminded the family member present that considering his disease process that he is still at risk for aspiration pneumonia. We again discussed PEG tube. She again says she did not want the PEG tube despite my conversation with her. Objective - Vital Signs/Intake and Output Vital Signs (last 24 hours): Temp Pulse Resp BP Pulse Ox 101.4 F H 65 20 137/66 96 04/22/17 08:20 04/22/17 07:20 04/22/17 07:20 04/22/17 07:20 04/22/17 07:20 Intake and Output: 04/22/17 04/22/17 06:59 18:59 Intake Total 1300 Output Total 750 Balance 550 - Medications Medications: Current Medications Acetaminophen (Tylenol 650 Mg Supp) 650 mg ND Q6 PRN PRN Reason: Fever >100.4 F Last Admin: 04/22/17 08:20 Dose: 650 mg Albuterol Sulfate (Albuterol 0.083% Inhal Dunai (2.5 Mg/3 Ml) Ud) 2.5 mg INH RQ6 TOD Last Admin: 04/22/17 07:49 Dose: 2.5 mg Aspirin (Aspirin Chewable) 81 mg PO DAILY TOD Last Admin: 04/22/17 09:07 Dose: 81 mg Baclofen (Lioresal) 10 mg PO DAILY TOD Last Admin: 04/22/17 09:07 Dose: 10 mg Budesonide (Pulmicort Respules) 0.5 mg INH RQ12 TOD Last Admin: 04/22/17 07:49 Dose: 0.5 mg Donepezil HCl (Aricept) 10 mg PO DAILY TOD Last Admin: 04/22/17 09:09 Dose: 10 mg Heparin Sodium (Porcine) (Heparin) 5,000 units SC Q8 TOD Last Admin: 04/22/17 05:19 Dose: 5,000 units Piperacillin Sod/Tazobactam (Sod 3.375 gm/ Sodium Chloride) 100 mls @ 200 mls/ hr IVPB Q6H TOD Last Admin: 04/22/17 09:09 Dose: 200 mls/hr Sodium Chloride (Sodium Chloride 0.45%) 1,000 mls @ 70 mls/hr IV .[id number] [facility] Last Admin: 04/21/17 13:31 Dose: 70 mls/hr Azithromycin 500 mg/ Sodium (Chloride) 250 mls @ 166.667 mls/hr IVPB Q24H [facility] Last Admin: 04/21/17 15:00 Dose: 166.667 mls/hr Pantoprazole Sodium (Protonix Inj) 40 mg IVP DAILY [facility] Last Admin: 04/22/17 09:07 Dose: 40 mg Pneumococcal Polyvalent Vaccine (Pneumovax 23 Vaccine) 0.5 ml IM .ONCE ONE Stop: 04/22/17 10:01 Last Admin: 04/22/17 09:08 Dose: 0.5 ml Quetiapine Fumarate (Seroquel) 25 mg PO DAILY [facility] Last Admin: 04/22/17 09:07 Dose: 25 mg - Labs Labs: 04/22/17 06:50 04/22/17 06:50 PT 14.3 SECONDS (9.7-12.2) H 04/20/17 00:20 INR 1.3 04/20/17 00:20 APTT 40 SECONDS (21-34) H D 04/21/17 08:00 - Constitutional Appears: Unkempt, Older Than Stated Age, Confused, Chronically Ill - Head Exam Head Exam: NORMAL INSPECTION - Eye Exam Additional comments: Hx of [place]. He can barely open eyes - ENT Exam ENT Exam: Mucous Membranes Moist - Respiratory Exam Respiratory Exam: Decreased Breath Sounds, Rhonchi, NORMAL BREATHING PATTERN - Cardiovascular Exam Cardiovascular Exam: REGULAR RHYTHM - GI/Abdominal Exam GI & Abdominal Exam: Soft. absent: Distended, Firm, Guarding, Rigid, Tenderness - Neurological Exam Neurological Exam: Alert, Altered, Awake Neuro motor strength exam: Left Upper Extremity: 3, Right Upper Extremity: 3, Left Lower Extremity: 0, Right Lower Extremity: 0 - Psychiatric Exam Psychiatric exam: Depressed, Flat Affect - Skin Skin Exam: Pallor, Pallor Assessment and Plan - Assessment and Plan (Free Text) Assessment: - Assessment and Plan (Free Text) Assessment: 1.) Aspiration Pneumonia secondary to advanced [place]'s Disease 04/22: Like yesterday I had discussion about PEG tube - at bedside again does not want PEG tube. I was very clear with her that he is at risk for aspiration pneumonia and I explained this in very simple to understand language. WBC 14 today. Cultures negative 24 hrs - Chest CT 04/20/17 - Bilateral interstitial and airspace disease pneumonia cannot be excluded; small right pleural effusion. There is a non-acute, cystic appearing lesion with a calcified rim partially imaged in the the upper portion of the abdomen. Further imagining may be needed to further evaluate.St * Zosyn 3.375g IVPB Q6H started 04/20 * Azythromycin 500mg IV started 04/21 * Acetaminophen Q6 PRN for fever >101 * 08/01 normal NS @ 70ml/hr - f/u blood culture - urine cultures: No growth 2.) Yunior's Disease 04/22: As mentioned previously does not want PEG. I watched the patient be spoon fed by the at bedside. He is able to do so, but he really needs supervision. - Patient high risk of aspiration, swallow study and evaluation - Pureed diet with liquids - honey thickened - Spoke with she states she would like to try to feed her . She states she does not want him to get a PEG tube. - Restarted patient's home medications * Baclofen 10mg PO daily * Donepezil 10mg PO daily * Seroquel 25mg PO HS - Neurology Consult: Dr. Golden --> help appreciated - f/u MRI of brain 3.) Prophylactic Care * Heparin 5,000u SC Q8H * Protonix 40mg IVP daily - Aspiration precautions
[2017-04-22] MEDS ORDERED: Pneumococcal 23-Valent Vaccine IM ONE (10:00)
[2017-04-22] MEDS ORDERED: Gadodiamide 287 MG/ML VIAL (15ML) IV ONE (10:38)
--- NOTE | 2017-04-22 11:51 | MRI ---
PROCEDURE: MRI BRAIN WITH AND WITHOUT CONTRAST HISTORY: Yunior vs Parkinson COMPARISON: None. TECHNIQUE: Multiplanar, multisequence MR images of the brain were obtained with and without intravenous contrast enhancement. 15 mL Omniscan was injected intravenously. FINDINGS: HEMORRHAGE: None DWI: No evidence of an acute or early subacute infarction. BRAIN PARENCHYMA: There is no mass, mass effect or abnormal extra-axial fluid collection. There is no territorial infarction. There is a partially empty sella. ENHANCEMENT: No abnormal intracranial enhancement. VENTRICLES: There is severe global parenchymal volume loss and proportionate enlargement of the ventricles and cortical sulci. CRANIUM: There is normal bone marrow signal pattern. ORBITS: Grossly unremarkable. PARANASAL SINUSES/MASTOIDS: There is a retention cyst/ polyp in the left maxillary sinus. The remaining included paranasal sinuses and mastoid air cells are clear. VASCULAR SYSTEM: There are normal signal voids in the larger intracranial arteries. OTHER FINDINGS: None . IMPRESSION: 1. No acute intracranial abnormality. 2. Severe global parenchymal volume loss and proportionate enlargement of the ventricles and cortical sulci, advanced for the patient's age.
[2017-04-22] MEDS: Azithromycin 500 MG in Sodium Chloride 0.9% 250 ML IVPB SCH (14:35)
[2017-04-23] MEDS: Albuterol 0.083% Inhal Sol (2.5 mg/3 mL) UD INH SCH ×4 (01:15→19:45)
[2017-04-23] MEDS: Piperacillin/Tazobact 3.375 GM in Sodium Chloride 100 ML IVPB SCH ×4 (01:46→21:00)
[2017-04-23] MEDS: Budesonide 0.5 mg/2 ml Inhal Susp UD INH SCH ×2 (07:35→19:45)
[2017-04-23 08:27] LABS: BASO # 0.1 K/uL (0.0-0.2); BASO % 0.5 % (0.0-2.0); EOS % 0.2 % (0.0-4.0); HEMATOCRIT 39.5 % (35.0-51.0); LYMPH % 16.4 % (20.0-40.0); MEAN CORPUSCULAR HEMOGLOBIN 32.7 pg (27.0-31.0); MEAN CORPUSCULAR HGB CONC 34.8 g/dL (33.0-37.0); MEAN PLATELET VOLUME 8.8 fL (7.2-11.7); MONO # 1.3 K/uL (0.0-0.8); MONO % 10.6 % (0.0-10.0); WHITE BLOOD COUNT 12.4 K/uL (4.8-10.8)
[2017-04-23 08:45] LABS: CHLORIDE 99 mmol/L (98-107); POTASSIUM 3.5 mmol/L (3.6-5.2); SODIUM 140 mmol/L (132-148)
[2017-04-23 08:47] LABS: ALKALINE PHOSPHATASE 65 U/L (38-126); ALT/SGPT 38 U/L (21-72); AST/SGOT 38 U/L (17-59); BLOOD UREA NITROGEN 11 mg/dL (9-20); CARBON DIOXIDE 27 mmol/L (22-30); GFR AFRICAN-AMERICAN > 60; TOTAL PROTEIN 6.6 g/dL (6.3-8.3)
[2017-04-23 08:48] LABS: GLUCOSE,RANDOM 91 mg/dL (75-110); MAGNESIUM 1.8 mg/dL (1.6-2.3); PHOSPHOROUS 3.7 mg/dL (2.5-4.5)
[2017-04-23 08:49] LABS: ALB/GLOB RATIO 1.1 (1.0-2.1)
--- NOTE | 2017-04-23 09:08 | CP.PCM.PN ---
Subjective - Date & Time of Evaluation Date of Evaluation: 04/23/17 Time of Evaluation: 09:00 - Subjective Subjective: Patient was seen and examined. He was again more awake than before. Remains non-verbal and not responding to my commands or stimuli However patient does seem to be able to swallow when his is present and feeds him. I personally observed him open and swallow. I did not talk to her about PEG tube this morning as we have been the previous couple of days already. The pending AM lab work. I explained to the patient's that we are waiting for the CBC to normalize and vitals to be stable before he can be discharged to home. The MRI returned, it showed severe parenchymal volume loss, very enlarged ventricles/sulci. Objective - Vital Signs/Intake and Output Vital Signs (last 24 hours): Temp Pulse Resp BP Pulse Ox 97.6 F 64 18 125/79 94 L 04/23/17 07:05 04/23/17 07:05 04/23/17 07:05 04/23/17 07:05 04/23/17 07:05 Intake and Output: 04/23/17 04/23/17 06:59 18:59 Intake Total 230 Output Total 1050 Balance -820 - Medications Medications: Current Medications Acetaminophen (Tylenol 650 Mg Supp) 650 mg VT Q6 PRN PRN Reason: Fever >100.4 F Last Admin: 04/23/17 00:11 Dose: 650 mg Albuterol Sulfate (Albuterol 0.083% Inhal Dunia (2.5 Mg/3 Ml) Ud) 2.5 mg INH RQ6 TOD Last Admin: 04/23/17 07:35 Dose: 2.5 mg Aspirin (Aspirin Chewable) 81 mg PO DAILY TOD Last Admin: 04/23/17 08:59 Dose: 81 mg Baclofen (Lioresal) 10 mg PO DAILY TOD Last Admin: 04/22/17 09:07 Dose: 10 mg Budesonide (Pulmicort Respules) 0.5 mg INH RQ12 TOD Last Admin: 04/23/17 07:35 Dose: 0.5 mg Docusate Sodium (Colace) 100 mg PO DAILY PRN PRN Reason: Constipation Last Admin: 04/23/17 08:59 Dose: 100 mg Donepezil HCl (Aricept) 10 mg PO DAILY [facility] Last Admin: 04/23/17 08:59 Dose: 10 mg Piperacillin Sod/Tazobactam (Sod 3.375 gm/ Sodium Chloride) 100 mls @ 200 mls/ hr IVPB Q6H [facility] Last Admin: 04/23/17 08:18 Dose: 200 mls/hr Azithromycin 500 mg/ Sodium (Chloride) 250 mls @ 166.667 mls/hr IVPB Q24H [facility] Last Admin: 04/22/17 14:35 Dose: 166.667 mls/hr Pantoprazole Sodium (Protonix Inj) 40 mg IVP DAILY [facility] Last Admin: 04/23/17 08:59 Dose: 40 mg Quetiapine Fumarate (Seroquel) 25 mg PO DAILY [facility] Last Admin: 04/23/17 08:59 Dose: 25 mg - Labs Labs: 04/23/17 08:09 04/23/17 08:09 PT 14.3 SECONDS (9.7-12.2) H 04/20/17 00:20 INR 1.3 04/20/17 00:20 APTT 40 SECONDS (21-34) H D 04/21/17 08:00 - Constitutional Appears: Unkempt, Older Than Stated Age, Confused, Cachectic, Chronically Ill - Eye Exam Eye Exam: absent: EOMI - ENT Exam ENT Exam: Mucous Membranes Moist - Respiratory Exam Respiratory Exam: Decreased Breath Sounds, Rhonchi - Cardiovascular Exam Cardiovascular Exam: REGULAR RHYTHM - GI/Abdominal Exam GI & Abdominal Exam: Soft, Normal Bowel Sounds. absent: Guarding, Rigid, Tenderness - Neurological Exam Neurological Exam: Alert, Altered, Awake. 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 Afebrile. 04/22: Like yesterday I had discussion about PEG tube - at bedside again does not want PEG tube. I was very clear with her that he is at risk for aspiration pneumonia and I explained this in very simple to understand language. WBC 14 today. Cultures negative 24 hrs - Chest CT 04/20/17 - Bilateral interstitial and airspace disease pneumonia cannot be excluded; small right pleural effusion. There is a non-acute, cystic appearing lesion with a calcified rim partially imaged in the the upper portion of the abdomen. Further imagining may be needed to further evaluate.St * Zosyn 3.375g IVPB Q6H started 04/20 * Azythromycin 500mg IV started 04/21 * Acetaminophen Q6 PRN for fever >101 * 1/2 normal NS @ 70ml/hr 2.) Bernie's Disease 04/23: I did not have the PEG discussion today. The MRI returned, it showed extreme parenchymal volume loss, very enlarged ventricles/sulci, 04/22: As mentioned previously does not want PEG. I watched the patient be spoon fed by the at bedside. He is able to do so, but he really needs supervision. - Patient high risk of aspiration, swallow study and evaluation - Pureed diet with liquids - honey thickened - Spoke with she states she would like to try to feed her . She states she does not want him to get a PEG tube. - Restarted patient's home medications * Baclofen 10mg PO daily * Donepezil 10mg PO daily * Seroquel 25mg PO HS - Neurology Consult: Dr. Golden --> help appreciated 3.) Prophylactic Care * Heparin 5,000u SC Q8H * Protonix 40mg IVP daily - Aspiration precautions
[2017-04-23] MEDS ORDERED: Potassium Chloride 20 mEq ER Tab PO ONE (10:15)
[2017-04-23] MEDS: Azithromycin 500 MG in Sodium Chloride 0.9% 250 ML IVPB SCH (13:00)
[2017-04-23 16:00] VITALS: RESP 20
[2017-04-24] MEDS: Albuterol 0.083% Inhal Sol (2.5 mg/3 mL) UD INH SCH ×3 (01:10→13:21)
[2017-04-24 01:15] VITALS: O2SAT 97
[2017-04-24] MEDS: Piperacillin/Tazobact 3.375 GM in Sodium Chloride 100 ML IVPB SCH ×3 (01:53→13:52)
[2017-04-24 05:27] VITALS: TEMP 98.3
[2017-04-24 07:16] LABS: BASO # 0.1 K/uL (0.0-0.2); EOS # 0.2 K/uL (0.0-0.7); EOS % 2.2 % (0.0-4.0); HEMATOCRIT 35.9 % (35.0-51.0); LYMPH # 1.3 K/uL (1.0-4.3); LYMPH % 14.5 % (20.0-40.0); MEAN CELL VOLUME 94.5 fL (80.0-94.0); MEAN CORPUSCULAR HEMOGLOBIN 32.8 pg (27.0-31.0); MEAN CORPUSCULAR HGB CONC 34.8 g/dL (33.0-37.0); MEAN PLATELET VOLUME 8.4 fL (7.2-11.7); MONO # 0.8 K/uL (0.0-0.8); NRBC % 0.1 % (0.0-2.0); RED CELL DISTRIBUTION WIDTH 14.1 % (11.5-14.5); WHITE BLOOD COUNT 9.1 K/uL (4.8-10.8)
[2017-04-24] MEDS: Budesonide 0.5 mg/2 ml Inhal Susp UD INH SCH (07:30)
[2017-04-24 07:43] LABS: CHLORIDE 105 mmol/L (98-107)
[2017-04-24 07:44] LABS: POTASSIUM 3.1 mmol/L (3.6-5.2); SODIUM 143 mmol/L (132-148)
[2017-04-24 07:45] LABS: ALB/GLOB RATIO 1.1 (1.0-2.1); ALKALINE PHOSPHATASE 60 U/L (38-126); ALT/SGPT 52 U/L (21-72); AST/SGOT 42 U/L (17-59); BLOOD UREA NITROGEN 12 mg/dL (9-20); CALCIUM 8.6 mg/dl (8.6-10.4); CARBON DIOXIDE 26 mmol/L (22-30); GFR AFRICAN-AMERICAN > 60; GLUCOSE,RANDOM 87 mg/dL (75-110); TOTAL PROTEIN 6.3 g/dL (6.3-8.3)
[2017-04-24 07:46] LABS: MAGNESIUM 1.8 mg/dL (1.6-2.3)
[2017-04-24] MEDS: Potassium Chloride 20 mEq/15 ml LIQ UD PO ONE ×2 (08:51→09:45)
[2017-04-24 08:58] VITALS: BP 148/65
[2017-04-24] MEDS ORDERED: Potassium Chloride 20 mEq ER Tab PO ONE ×2 (09:35→16:00)
[2017-04-24 11:56] VITALS: PULSE 65
[2017-04-24] MEDS: Azithromycin 500 MG in Sodium Chloride 0.9% 250 ML IVPB SCH (13:52)
--- NOTE | 2017-04-24 16:46 | CARD ---
APPROVED REPORT EKG Measurement Heart [id number] <Conclusion> Normal sinus rhythm Normal ECG
--- NOTE | 2017-04-24 18:46 | CP.PCM.DIS ---
Provider - Provider Date of Admission: 04/20/17 01:17 Attending physician: Heber Gonzalez DO Primary care physician: Blanca Hodgson MD Time Spent in preparation of Discharge (in minutes): 30 Hospital Course - Lab Results Lab Results: Micro Results 04/19/17 23:53 Blood Blood Culture - Preliminary NO GROWTH AFTER 4 DAYS 04/19/17 23:53 Blood Blood Culture - Preliminary NO GROWTH AFTER 4 DAYS 04/20/17 08:00 Urine Urine Culture - Final No Growth (<1,000 CFU/ML) Most Recent Lab Values WBC 9.1 K/uL (4.8-10.8) 04/24/17 06:56 RBC 3.80 Mil/uL (4.40-5.90) L 04/24/17 06:56 Hgb 12.5 g/dL (12.0-18.0) 04/24/17 06:56 Hct 35.9 % (35.0-51.0) 04/24/17 06:56 MCV 94.5 fL (80.0-94.0) H 04/24/17 06:56 MCH 32.8 pg (27.0-31.0) H 04/24/17 06:56 MCHC 34.8 g/dL (33.0-37.0) 04/24/17 06:56 RDW 14.1 % (11.5-14.5) 04/24/17 06:56 Plt Count 373 K/uL (130-400) 04/24/17 06:56 MPV 8.4 fL (7.2-11.7) 04/24/17 06:56 Neut % (Auto) 73.3 % (50.0-75.0) 04/24/17 06:56 Lymph % (Auto) 14.5 % (20.0-40.0) L 04/24/17 06:56 [place] % (Auto) 9.0 % (0.0-10.0) 04/24/17 06:56 Eos % (Auto) 2.2 % (0.0-4.0) 04/24/17 06:56 Baso % (Auto) 1.0 % (0.0-2.0) 04/24/17 06:56 Neut # 6.7 K/uL (1.8-7.0) 04/24/17 06:56 Lymph # 1.3 K/uL (1.0-4.3) 04/24/17 06:56 [place] # 0.8 K/uL (0.0-0.8) 04/24/17 06:56 Eos # 0.2 K/uL (0.0-0.7) 04/24/17 06:56 Baso # 0.1 K/uL (0.0-0.2) 04/24/17 06:56 Neutrophils % (Manual) 89 % (50-75) H 04/20/17 07:09 Band Neutrophils % 1 % (0-2) 04/20/17 00:07 Lymphocytes % (Manual) 6 % (20-40) L 04/20/17 07:09 Monocytes % (Manual) 5 % (0-10) 04/20/17 07:09 Platelet Estimate Normal (NORMAL) 04/20/17 07:09 RBC Morphology Normal 04/20/17 07:09 PT 14.3 SECONDS (9.7-12.2) H 04/20/17 00:20 INR 1.3 04/20/17 00:20 APTT 40 SECONDS (21-34) H D 04/21/17 08:00 Puncture Site Rr 04/20/17 00:45 pCO2 36 mm/Hg (35-45) 04/20/17 00:45 pO2 79 mm/Hg (80-100) L 04/20/17 00:45 HCO3 24.8 mmol/L (21-28) 04/20/17 00:45 ABG pH 7.43 (7.35-7.45) 04/20/17 00:45 ABG Total CO2 25.0 mmol/L (22-28) 04/20/17 00:45 ABG O2 Saturation 97.6 % (95-98) 04/20/17 00:45 ABG Base Excess 0 mmol/L (-2.0-3.0) 04/20/17 00:45 ABG Hemoglobin 14.8 g/dL (11.7-17.4) 04/20/17 00:45 ABG Carboxyhemoglobin 2.6 % (0.5-1.5) H 04/20/17 00:45 POC ABG HHb (Measured) 2.3 % (0.0-5.0) 04/20/17 00:45 ABG Methemoglobin 1.4 % (0.0-3.0) 04/20/17 00:45 Ruddy Test Pos 04/20/17 00:45 VBG pH 7.42 (7.32-7.43) 04/19/17 00:01 VBG pCO2 35 mmHg (40-60) L 04/19/17 00:01 VBG HCO3 23.6 mmol/L 04/19/17 00:01 VBG Total CO2 23.8 mmol/L (22-28) 04/19/17 00:01 VBG O2 Sat (Calc) 96.1 % (40-65) H 04/19/17 00:01 VBG Base Excess -1.3 mmol/L (0.0-2.0) L 04/19/17 00:01 VBG Potassium 3.9 mmol/L (3.6-5.2) 04/19/17 00:01 A-a O2 Difference 26.0 mm/Hg 04/20/17 00:45 Respiratory Index 0.3 04/20/17 00:45 Hgb O2 Saturation 93.7 % (95.0-98.0) L 04/20/17 00:45 Sodium 139.0 mmol/l (132-148) 04/19/17 00:01 Chloride 107.0 mmol/L (98-107) 04/19/17 00:01 Glucose 134 mg/dl (75-110) H 04/19/17 00:01 Lactate 1.4 mmol/L (0.7-2.1) 04/19/17 00:01 Vent Mode Room air 04/20/17 00:45 FiO2 21.0 % 04/20/17 00:45 Sodium 143 mmol/L (132-148) 04/24/17 06:56 Potassium 3.1 mmol/L (3.6-5.2) L 04/24/17 06:56 Chloride 105 mmol/L (98-107) 04/24/17 06:56 Carbon Dioxide 26 mmol/L (22-30) 04/24/17 06:56 Anion Gap 15 (10-20) 04/24/17 06:56 BUN 12 mg/dL (9-20) 04/24/17 06:56 Creatinine 0.7 MG/DL (0.8-1.5) L 04/24/17 06:56 Est GFR ( Amer) > 60 04/24/17 06:56 Est GFR (Non-Af Amer) > 60 04/24/17 06:56 Random Glucose 87 mg/dL (75-110) 04/24/17 06:56 Calcium 8.6 mg/dl (8.6-10.4) 04/24/17 06:56 Phosphorus 3.0 mg/dL (2.5-4.5) 04/24/17 06:56 Magnesium 1.8 mg/dL (1.6-2.3) 04/24/17 06:56 Total Bilirubin 1.0 mg/dL (0.2-1.3) 04/24/17 06:56 AST 42 U/L (17-59) 04/24/17 06:56 ALT 52 U/L (21-72) 04/24/17 06:56 Alkaline Phosphatase 60 U/L (38-126) 04/24/17 06:56 Total Protein 6.3 g/dL (6.3-8.3) 04/24/17 06:56 Albumin 3.3 g/dL (3.5-5.0) L 04/24/17 06:56 Globulin 3.1 gm/dL (2.2-3.9) 04/24/17 06:56 Albumin/Globulin Ratio 1.1 (1.0-2.1) 04/24/17 06:56 Ceruloplasmin 31 mg/dL (18-36) 04/21/17 08:00 Vitamin B12 932 pg/mL (239-931) H 04/20/17 07:09 TSH 3rd Generation 1.48 mIU/L (0.46-4.68) 04/20/17 07:09 Venous Blood Potassium 3.9 mmol/L (3.6-5.2) 04/19/17 00:01 Urine Color Yellow (YELLOW) 04/20/17 01:06 Urine Clarity Clear (Clear) 04/20/17 01:06 Urine pH 5.0 (5.0-8.0) 04/20/17 01:06 Ur Specific [place] 1.033 (1.003-1.030) H 04/20/17 01:06 Urine Protein Negative mg/dL (NEGATIVE) 04/20/17 01:06 Urine Glucose (UA) Normal mg/dL (Normal) 04/20/17 01:06 Urine Ketones 1+ mg/dL (NEGATIVE) H 04/20/17 01:06 Urine Blood Negative (NEGATIVE) 04/20/17 01:06 Urine Nitrate Negative (NEGATIVE) 04/20/17 01:06 Urine Bilirubin Negative (NEGATIVE) 04/20/17 01:06 Urine Urobilinogen Normal mg/dL (0.2-1.0) 04/20/17 01:06 Ur Leukocyte Esterase Neg Wilbert/uL (Negative) 04/20/17 01:06 Urine WBC (Auto) 1 /hpf (0-5) 04/20/17 01:06 Urine RBC (Auto) 1 /hpf (0-3) 04/20/17 01:06 Ur Squamous Epith Cells < 1 /hpf (0-5) 04/20/17 01:06 Discharge Exam - Head Exam Head Exam: NORMAL INSPECTION Discharge Plan - Discharge Medications Prescriptions: Levofloxacin [Levaquin] 750 mg PO DAILY #5 tablet - Follow Up Plan Condition: STABLE Disposition: HOME/ ROUTINE Instructions: Levofloxacin (By mouth), Complete Blenderized Diet (DC), Aspiration Pneumonia (DC) Additional Instructions: Patient is being discharged home as per Dr. Díaz. Patient is to follow up with Dr. Hodgson within one week from being discharged. Discharged Medications: Levaquin 750mg daily x 5 days Continue Home medications as directed. Referrals: Blanca Hodgson MD [Primary Care Provider] -
== END 2017-04-24 19:30 | disposition home or self-care (01) | DRG 56 ==
LOC: C.ER 23:36 → SUPCPDRO 23:36 → C.3T 04-20 01:17 → C.9E 04-20 02:30 → C.6T 04-20 02:32
PROVIDERS: ADMIT Hospitalist; ATTEND Hospitalist
DX: G10 Huntington's disease (principal); J69.0 Pneumonitis due to inhalation of food and vomit; Z74.01 Bed confinement status; Z93.3 Colostomy status

== ENCOUNTER 2017-05-07 21:35 | Emergency (ER) | payer MEDICARE ==
[~2017-05-07 21:35] MED LIST: Sodium Bicarbonate (8.4%) 50 Meq Syringe ONE
[2017-05-07 21:46] VITALS: BP 0/0; PULSE 0; RESP 0; O2SAT 0
--- NOTE | 2017-05-07 22:13 | C.PDOC ---
History Of Present Illness 66 y/o male brought in by EMS for cardiac arrest. EMS witness arrest when called to pt's home for worsening SOB for the last 2 days. Patient was recently admitted from April 19- for pneumonia and known Yunior's disease. BLS arrived at his home and found him with SOB. As they moved the patient to the ambulance, the patient went into respiratory and cardiac arrest at approx 21: 10. ACLS protocol began in the field and patient was intubated in the field with Shane device for compression. Arrived in ER at 21:32. ET tube in place, 23 cm at the lips. Clear breath sounds bilaterally. Shane device at place delivering good compression. Intraosseous in the left humeral head. ACLS protocol continued. Initially asystole. ACLS protocol continued. TLC to the right groin by this MD. 21:51 patient persists in asystole, time of . Lasting Machine Operator Bed, PMD Dr. Hodgson, and medical file clerk called. Time Seen by Provider: 05/07/17 22:01 Chief Complaint (Nursing): Cardiac Arrest History Per: EMS, Family Past Medical History Reviewed: Historical Data, Nursing Documentation, Vital Signs Vital Signs: Last Vital Signs Temp Pulse 0 L 05/07/17 21:39 Resp 0 L 05/07/17 21:39 BP 0/0 L 05/07/17 21:39 Pulse Ox 0 L 05/07/17 22:58 - Medical History PMH: Pneumonia Denies: Chronic Kidney Disease Family History: States: Unknown Family Hx - Social History Hx Alcohol Use: No Hx Substance Use: No - Immunization History Hx Tetanus Toxoid Vaccination: No Hx Influenza Vaccination: Yes Hx Pneumococcal Vaccination: Yes Review Of Systems Review Of Systems: ROS cannot be obtained secondary to pt's inabilty to answer questions. Physical Exam - Physical Exam Skin: Other (mottled skin) Head: Atraumatic, Normacephalic Eye(s): bilateral: Other (Pupils fixed and dilated) Respiratory: No Rales, No Rhonchi, No Wheezing, Other (Clear breath sounds) Extremity: Other (Bilateral lower leg contraction.) ED Course And Treatment O2 Sat by Pulse Oximetry: 0 Medical Decision Making Medical Decision Making: recent pna, 2 days [place]A, resp arrest leading to cardiac arrest Underlying Fajardo's Dz Disposition Doctor Will See Patient In The: Hospital Counseled Patient/Family Regarding: Studies Performed, Diagnosis - Disposition Referrals: Blanca Hodgson MD [Primary Care Provider] - Disposition: WITH WITHOUT AUTOPSY Disposition Time: 21:51 () Condition: Forms: [employer] (Canadian) - Clinical Impression Clinical Impression: Cardiac arrest, - Scribe Statement The provider has reviewed the documentation as recorded by the Scribe Provider Attestation: Jose Manuel madrid All medical record entries made by the Scribe were at my direction and personally dictated by me. I have reviewed the chart and agree that the record accurately reflects my personal performance of the history, physical exam, medical decision making, and the department course for this patient. I have also personally directed, reviewed, and agree with the discharge instructions and disposition.
== END 2017-05-08 00:43 ==
LOC: SUPCPDRO 21:35 → C.ER 21:35
DX: I46.9 Cardiac arrest, cause unspecified (principal)
CPT/HCPCS: 92950; 99285; J0171